=== PATIENT | female | born 1985 | race Caucasian/White ===

== ENCOUNTER 2017-09-17 16:59 | Emergency (ER) | payer OTHER ==
--- NOTE | 2017-09-17 18:03 | PDOC ---
Rapid Medical Evaluation Time Seen by Provider: 09/17/17 18:00 Medical Evaluation: Allergies Allergy/AdvReac Type Severity Reaction Status Date / Time No Known Allergies Allergy Verified 11/07/11 15:38 09/17/17 18:00 I have performed a brief in-person evaluation of this patient. The patient presents with a chief complaint of: , ~6 wks preg, 08/23 LMP, " a little vag bleeding" Pertinent physical exam findings: abdominal pain I have ordered the following: labs, US The patient will proceed to the ED for further evaluation. Discharge Disposition - Diagnosis Vaginal bleeding during - Referrals - Patient Instructions - Post Discharge Activity
[2017-09-17 18:06] VITALS: BP 97/64; PULSE 77; TEMP 98.4; BMI 23.8
[2017-09-17 20:28] LABS: BASO % 0.4 % (0-2.0); EOS % 0.4 % (0-4.5); HEMATOCRIT 42.5 % (32.4-45.2); HEMOGLOBIN 14.5 GM/dL (10.7-15.3); LYMPH % 16.2 % (8-40); MCH 30.6 pg (25.7-33.7); MCHC 34.1 g/dl (32.0-36.0); MEAN PLT VOLUME 9.1 fl (7.5-11.1); MONO % 6.9 % (3.8-10.2); NEUT % 76.1 % (42.8-82.8); PLATELET COUNT 187 K/MM3 (134-434); RBC 4.73 M/mm3 (3.60-5.2); URINE APPEARANCE SLCLOUDY; URINE BILIRUBIN NEGATIVE (NEGATIVE); URINE BLOOD 2+ (NEGATIVE); URINE COLOR YELLOW; URINE GLUCOSE (UA) NEGATIVE (NEGATIVE); URINE KETONE 2+ (NEGATIVE); URINE NITRITE NEGATIVE (NEGATIVE); WHITE BLOOD COUNT 9.3 K/mm3 (4.0-10.0)
[2017-09-17 20:31] LABS: URINE LEUK ESTERASE 3+ (NEGATIVE); URINE PROTEIN 1+ (NEGATIVE)
[2017-09-17 20:33] LABS: EPI CELLS FEW /HPF (FEW); URINE MUCUS RARE
[2017-09-17 21:24] LABS: ANION GAP 12 (8-16); BLOOD UREA NITROGEN 14 mg/dL (7-18); CALCIUM 8.9 mg/dL (8.5-10.1); CHLORIDE 98 mmol/L (98-107); CO2 25 mmol/L (21-32); CREATININE 0.6 mg/dL (0.55-1.02); GLUCOSE,RANDOM 77 mg/dL (74-106); POTASSIUM 3.6 mmol/L (3.5-5.1); SGOT/AST 20 U/L (15-37); SGPT/ALT 33 U/L (12-78); SODIUM 135 mmol/L (136-145)
[2017-09-17 21:41] LABS: ALK PHOS 79 U/L (45-117); BILIRUBIN,TOTAL 0.7 mg/dL (0.2-1.0); TOT PROT 7.8 g/dl (6.4-8.2)
--- NOTE | 2017-09-17 22:15 | PDOC ---
*Physical Exam - Vital Signs Last Vital Signs Temp Pulse Resp BP Pulse Ox 98.4 F 77 18 97/64 100 09/17/17 18:02 09/17/17 18:02 09/17/17 18:02 09/17/17 18:02 09/17/17 18:02 ED Treatment Course - LABORATORY CBC & Chemistry Diagram: 09/17/17 20:20 09/17/17 20:20 - ADDITIONAL ORDERS Additional order review: Laboratory Results 09/17/17 09/17/17 09/17/17 20:20 20:20 20:20 Sodium 135 L Potassium 3.6 Chloride 98 Carbon Dioxide 25 Anion Gap 12 BUN 14 Creatinine 0.6 Creat Clearance w eGFR > 60 Random Glucose 77 Calcium 8.9 Total Bilirubin 0.7 AST 20 ALT 33 Alkaline Phosphatase 79 Total Protein 7.8 Albumin 4.0 Beta HCG, Quant 067781.5 Urine Color Yellow Urine Appearance Slcloudy Urine pH 5.0 Ur Specific [place] 1.028 Urine Protein 1+ H Urine Glucose (UA) Negative Urine Ketones 2+ H Urine Blood 2+ H Urine Nitrite Negative Urine Bilirubin Negative Urine Urobilinogen 2.0 H Ur Leukocyte Esterase 3+ H Urine WBC (Auto) 41 Urine RBC (Auto) 2 Ur Epithelial Cells Few Urine Mucus Rare Blood Type O POSITIVE Antibody Screen Negative 09/17/17 20:20 RBC 4.73 MCV 90.0 MCHC 34.1 RDW 13.0 MPV 9.1 Neutrophils % 76.1 Lymphocytes % 16.2 D Monocytes % 6.9 Eosinophils % 0.4 D Basophils % 0.4 Medical Decision Making - Medical Decision Making 09/17/17 22:15 agree with care from CORINNE Bullard *DC/Admit/Observation/Transfer Diagnosis at time of Disposition: Vaginal bleeding during - Referrals - Patient Instructions - Post Discharge Activity
--- NOTE | 2017-09-17 22:22 | PDOC ---
History of Present Illness - General Chief Complaint: Vaginal Bleeding Stated Complaint: VAGINAL BLEEDING/7 WKS Time Seen by Provider: 09/17/17 18:00 History Source: Patient - History of Present Illness Initial Comments: 09/17/17 22:16 32-year-old female complaining of vaginal bleeding/pelvic pain since this afternoon with small spotting. Patient positive urine at home and has an appointment to see [employer] in 2 weeks. Denies urinary symptoms Past History - Past Medical History Allergies/Adverse Reactions: Allergies Allergy/AdvReac Type Severity Reaction Status Date / Time No Known Allergies Allergy Verified 09/17/17 18:01 Home Medications: Ambulatory Orders Pnv Comb.no58/Iron Bisgly/FA [ Capsule] 1 cap PO DAILY 11/07/11 Asthma: No Cancer: No Cardiac Disorders: No COPD: No Diabetes: No HTN: No Seizures: No Thyroid Disease: No - Suicide/Smoking/Psychosocial Hx Smoking History: Never smoked Have you smoked in the past 12 months: No Information on smoking cessation initiated: No Hx Alcohol Use: No Drug/Substance Use Hx: No Substance Use Type: None Hx Substance Use Treatment: No *Physical Exam - Vital Signs Last Vital Signs Temp Pulse Resp BP Pulse Ox 98.4 F 77 18 97/64 100 09/17/17 18:02 09/17/17 18:02 09/17/17 18:02 09/17/17 18:02 09/17/17 18:02 - Physical Exam General Appearance: Yes: Appropriately Dressed Respiratory/Chest: positive: Lungs Clear, Normal Breath Sounds Female Pelvic Exam: positive: normal external exam, cervical os closed, normal adnexa, other (white/ brown vaginal discarge). negative: [facility] ED Treatment Course - LABORATORY CBC & Chemistry Diagram: 09/17/17 20:20 09/17/17 20:20 - ADDITIONAL ORDERS Additional order review: Laboratory Results 09/17/17 09/17/17 09/17/17 20:20 20:20 20:20 Sodium 135 L Potassium 3.6 Chloride 98 Carbon Dioxide 25 Anion Gap 12 BUN 14 Creatinine 0.6 Creat Clearance w eGFR > 60 Random Glucose 77 Calcium 8.9 Total Bilirubin 0.7 AST 20 ALT 33 Alkaline Phosphatase 79 Total Protein 7.8 Albumin 4.0 Beta HCG, Quant 271420.5 Urine Color Yellow Urine Appearance Slcloudy Urine pH 5.0 Ur Specific [place] 1.028 Urine Protein 1+ H Urine Glucose (UA) Negative Urine Ketones 2+ H Urine Blood 2+ H Urine Nitrite Negative Urine Bilirubin Negative Urine Urobilinogen 2.0 H Ur Leukocyte Esterase 3+ H Urine WBC (Auto) 41 Urine RBC (Auto) 2 Ur Epithelial Cells Few Urine Mucus Rare Blood Type O POSITIVE Antibody Screen Negative 09/17/17 20:20 RBC 4.73 MCV 90.0 MCHC 34.1 RDW 13.0 MPV 9.1 Neutrophils % 76.1 Lymphocytes % 16.2 D Monocytes % 6.9 Eosinophils % 0.4 D Basophils % 0.4 *DC/Admit/Observation/Transfer Diagnosis at time of Disposition: Vaginal bleeding during , Threatened in early , UTI (urinary tract infection) - Discharge Dispostion Disposition: HOME - Referrals - Patient Instructions Printed Discharge Instructions: DI for Vaginal Bleeding During , Threatened Additional Instructions: Drink plenty of fluids. Take Macrobid as prescribed. 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 Return to the emergency room if you are soaking through 2 pads in an hour, severe abdominal pain, fever or with worsening symptoms. - Post Discharge Activity
[2017-09-17] MEDS ORDERED: NITROFURANTOIN MACROCRYSTAL 50 MG CAPSULE (FP) PO SCH (22:30)
[2017-09-17] MEDS ORDERED: NITROFURANTOIN MACROCRYSTAL 50 MG CAPSULE (FP) ONE (23:00)
== END 2017-09-17 22:33 | disposition home or self-care (01) ==
LOC: JER 16:59
DX: O26.891 Other specified pregnancy related conditions, first trimester (principal); O20.0 Threatened abortion; O23.31 Infections of other parts of urinary tract in pregnancy, first trimester; Z3A.01 Less than 8 weeks gestation of pregnancy
CPT/HCPCS: 36415; 76817-TC; 80053; 81003; 81015; 84702; 85025; 86850; 86900; 86901; 87086; 99282-25

== ENCOUNTER 2018-04-17 07:35 | Inpatient (IN) | payer OTHER ==
[2018-04-17] MEDS ORDERED: OXYTOCIN 10 UNITS/ML VIAL IM STA (07:45)
[2018-04-17] MEDS ORDERED: METHYLERGONOVINE MALEATE 0.2 MG/1 ML AMP IM STA (07:45)
[2018-04-17 08:18] VITALS: BMI 28.3
[2018-04-17] MEDS ORDERED: BENZOCAINE 28 GM HEMORRHOIDAL OINTMENT TP PRN (08:31)
[2018-04-17] MEDS ORDERED: BISACODYL 10 MG SUPP.RECT RC PRN (08:31)
[2018-04-17] MEDS ORDERED: WITCH HAZEL 50% (TUCKS) 40 PAD/JAR PAD TP PRN (08:31)
[2018-04-17] MEDS ORDERED: METHYLERGONOVINE MALEATE 0.2 MG/1 ML AMP IM PRN (08:31)
[2018-04-17] MEDS ORDERED: BENZOCAINE 20% 57 GM BOTTLE TP PRN (08:31)
--- NOTE | 2018-04-17 08:36 | HP ---
Past Medical History - Primary Care Physician PCP:: Silver Fisher - Admission Chief Complaint: 38 weeks, labor History of Present Illness: 33 yof 38.2 weeks,in labor, cx full 100 vx 3+ station, srom at arrival ,clear fluid, fhr 130 .strong contraction History Source: Patient Limitations to Obtaining History: Language Barrier - Past Medical History ...: 3 ...Para: 2 ...Term: 2 ...LMP: 07/23/17 ... Weeks Gestation by Dates: 38.2 ...EDC by Dates: 04/29/18 ...EDC by Sono: 05/05/18 - Past Surgical History Hx Myomectomy: No Hx Transabdominal Cerclage: No - Smoking History Smoking history: Never smoked Have you smoked in the past 12 months: No - Alcohol/Substance Use Hx Alcohol Use: No - Social History Usual Living Arrangement: Yes: With Spouse Home Medications - Allergies Allergies/Adverse Reactions: Allergies Allergy/AdvReac Type Severity Reaction Status Date / Time No Known Allergies Allergy Verified 09/17/17 18:01 - Home Medications Home Medications: Ambulatory Orders Nitrofurantoin Monohyd/M-Cryst [Macrobid -] 100 mg PO BID #20 capsule 09/17/17 Review of Systems - Review of Systems Constitutional: reports: No Symptoms Eyes: reports: No Symptoms HENT: reports: No Symptoms Neck: reports: No Symptoms Cardiovascular: reports: No Symptoms Respiratory: reports: No Symptoms Gastrointestinal: reports: No Symptoms Genitourinary: reports: No Symptoms Breasts: reports: No Symptoms Reported Musculoskeletal: reports: No Symptoms Integumentary: reports: No Symptoms Neurological: reports: No Symptoms Endocrine: reports: No Symptoms Hematology/Lymphatic: reports: No Symptoms Psychiatric: reports: No Symptoms Physical Exam - Maternity Vital Signs: Vital Signs Temperature 98.2 F 04/17/18 08:11 Pulse Rate 84 04/17/18 08:11 Respiratory Rate 18 04/17/18 08:11 Blood Pressure 138/78 04/17/18 08:11 O2 Sat by Pulse Oximetry (%) Constitutional: Yes: Well Nourished, No Distress, Calm Eyes: Yes: WNL, Conjunctiva Clear, EOM Intact HENT: Yes: WNL, Atraumatic, Normocephalic Neck: Yes: WNL, Supple, Trachea Midline Cardiovascular: Yes: WNL, Regular Rate and Rhythm Breast(s): Yes: WNL - Abdominal Exam/OB Fundal Height: 38 Number of Fetuses: Single Presentation: Vertex Contractions: Yes Regularity: Regular Intensity: Strong Monitor Mode: External Heart Rate Location: [facility] Category: I Decelerations: None - Vaginal Exam/OB Vaginal Bleediing: Bloody Show Speculum Exam: No Dilatation (cm): full Effacement (%): 100 Amniotic Membrane Status: Ruptured Nitrazine Test: Positive Amniotic Fluid: Yes: Clear Presentation: Vertex/Position Station: +3 - Physical Exam Edema: No Deep Tendon Reflex Grade: Normal +2 Hemorrhage Risk Assessment - Risk Factors Medium Risk Factors: Yes: None High Risk Factors: Yes: None Risk Score: 1 Risk Level: Medium Risk Problem List - Problems (1) with 38 completed weeks gestation Code(s): Z3A.38 - 38 WEEKS GESTATION OF (2) Labor established Code(s): QBI8390 - Assessment/Plan admit for vaginal delivery
[2018-04-17 09:03] LABS: BASO % 0.2 % (0-2.0); HEMATOCRIT 39.9 % (32.4-45.2); HEMOGLOBIN 12.8 GM/dL (10.7-15.3); LYMPH % 6.4 % (8-40); MCH 29.4 pg (25.7-33.7); MCHC 32.1 g/dl (32.0-36.0); MEAN CELL VOLUME 91.6 fl (80-96); MEAN PLT VOLUME 9.5 fl (7.5-11.1); MONO % 4.3 % (3.8-10.2); NEUT % 89.1 % (42.8-82.8); PLATELET COUNT 142 K/MM3 (134-434); RBC 4.35 M/mm3 (3.60-5.2); RDW 13.5 % (11.6-15.6); WHITE BLOOD COUNT 13.2 K/mm3 (4.0-10.0)
[2018-04-17 09:15] LABS: BLOOD UREA NITROGEN 10 mg/dL (7-18); CALCIUM 8.9 mg/dL (8.5-10.1); CO2 21 mmol/L (21-32); GLUCOSE,RANDOM 105 mg/dL (74-106)
[2018-04-17 09:19] LABS: INR 0.94 (0.83-1.09); PROTHROMBIN TIME (PATIENT) 10.6 SEC (9.7-13.0)
[2018-04-17 09:21] LABS: ACTIVATED PTT 29.1 SECONDS (25.2-36.5)
[2018-04-17 10:19] LABS: ANION GAP 14 MMOL/L (8-16); CHLORIDE 103 mmol/L (98-107); CREATININE 0.6 mg/dL (0.55-1.3); POTASSIUM 3.7 mmol/L (3.5-5.1); SODIUM 138 mmol/L (136-145)
[2018-04-17] MEDS: IBUPROFEN 600 MG TABLET (FP) PO PRN (13:47)
[2018-04-17] MEDS: PRENATAL VITAMINS W/ FOLIC ACID TABLET (FP) PO SCH (13:47)
[2018-04-17] MEDS: ACETAMINOPHEN 325 MG TABLET (FP) PO PRN (13:48)
[2018-04-17] MEDS: FERROUS SO4 325 MG TABLET (FP) PO SCH (21:45)
[2018-04-18] MEDS: FERROUS SO4 325 MG TABLET (FP) PO SCH ×2 (07:24→19:01)
[2018-04-18 07:32] LABS: BASO % 0.2 % (0-2.0); EOS % 0.2 % (0-4.5); HEMATOCRIT 35.2 % (32.4-45.2); HEMOGLOBIN 11.6 GM/dL (10.7-15.3); LYMPH % 12.7 % (8-40); MCHC 33.1 g/dl (32.0-36.0); MEAN CELL VOLUME 90.9 fl (80-96); MONO % 6.3 % (3.8-10.2); NEUT % 80.6 % (42.8-82.8); PLATELET COUNT 146 K/MM3 (134-434); RBC 3.87 M/mm3 (3.60-5.2); RDW 13.7 % (11.6-15.6); WHITE BLOOD COUNT 10.9 K/mm3 (4.0-10.0)
[2018-04-18] MEDS: PRENATAL VITAMINS W/ FOLIC ACID TABLET (FP) PO SCH (09:39)
[2018-04-18] MEDS: IBUPROFEN 600 MG TABLET (FP) PO PRN (09:42)
[2018-04-18] MEDS: ACETAMINOPHEN 325 MG TABLET (FP) PO PRN (09:42)
[2018-04-18] MEDS ORDERED: DIPHTH,PERTUSS(ACELL),TET 0.5 ML DISP.SYRIN IM ONE (10:00)
--- NOTE | 2018-04-18 10:20 | PN ---
Post Progress Note Post Day: 1 Type of Delivery: Vital Signs: Vital Signs Temperature 98 F 04/18/18 06:00 Pulse Rate 59 L 04/18/18 06:00 Respiratory Rate 18 04/18/18 06:00 Blood Pressure 100/55 04/18/18 06:00 O2 Sat by Pulse Oximetry (%) Breast Exam: Yes: Soft Uterus: Yes: Fundus Firm Abdomen/GI: Yes: Abdomen soft Lochia: Yes: Rubra Lochia, amount: Small Extremities: Yes: Calves non-tender Perineum: Yes: Intact Activity: Ambulating - Labs Labs: CBC WBC 10.9 K/mm3 (4.0-10.0) H 04/18/18 07:10 RBC 3.87 M/mm3 (3.60-5.2) 04/18/18 07:10 Hgb 11.6 GM/dL (10.7-15.3) 04/18/18 07:10 Hct 35.2 % (32.4-45.2) 04/18/18 07:10 MCV 90.9 fl (80-96) 04/18/18 07:10 MCH 30.0 pg (25.7-33.7) 04/18/18 07:10 MCHC 33.1 g/dl (32.0-36.0) 04/18/18 07:10 RDW 13.7 % (11.6-15.6) 04/18/18 07:10 Plt Count 146 K/MM3 (134-434) 04/18/18 07:10 MPV 9.0 fl (7.5-11.1) 04/18/18 07:10 Absolute Neuts (auto) 8.8 K/mm3 (1.5-8.0) H 04/18/18 07:10 Neutrophils % 80.6 % (42.8-82.8) 04/18/18 07:10 Lymphocytes % 12.7 % (8-40) D 04/18/18 07:10 Monocytes % 6.3 % (3.8-10.2) 04/18/18 07:10 Eosinophils % 0.2 % (0-4.5) D 04/18/18 07:10 Basophils % 0.2 % (0-2.0) 04/18/18 07:10 Nucleated RBC % 0 % (0-0) 04/18/18 07:10 Assessment/Plan reg diet oob contine care
[2018-04-18] MEDS ORDERED: SENNOSIDES/DOCUSATE COMBO (SENNA PLUS) TABLET (UD) PO PRN (22:00)
[2018-04-19] MEDS: IBUPROFEN 600 MG TABLET (FP) PO PRN ×2 (01:46→08:48)
[2018-04-19] MEDS: ACETAMINOPHEN 325 MG TABLET (FP) PO PRN ×2 (01:46→08:50)
[2018-04-19] MEDS: FERROUS SO4 325 MG TABLET (FP) PO SCH (08:48)
[2018-04-19] MEDS: PRENATAL VITAMINS W/ FOLIC ACID TABLET (FP) PO SCH (10:00)
[2018-04-19 12:28] VITALS: BP 112/64; PULSE 74; TEMP 98
== END 2018-04-19 12:00 | disposition home or self-care (01) | DRG 560 ==
LOC: JLDR 07:35 → J3W 10:00
PROVIDERS: ADMIT Obstetrics & Gynecology; ATTEND Obstetrics & Gynecology
PROC: 10E0XZZ Delivery of Products of Conception, External Approach (ICD-10-PCS; principal; 2018-04-17)
DX: O80 Encounter for full-term uncomplicated delivery (principal); Z3A.38 38 weeks gestation of pregnancy; Z37.0 Single live birth
CPT/HCPCS: 36415; 59409; 80048; 85025; 85610; 85730; 86593; 86850; 86900; 86901; 90715

== ENCOUNTER 2022-12-15 13:40 | Inpatient (IN) | payer OTHER ==
[2022-12-15] MEDS ORDERED: SODIUM CHLORIDE 100 ML IVPB ONE (14:26)
[2022-12-15] MEDS ORDERED: AMPICILLIN SODIUM 2 GM VIAL ONE (14:26)
[2022-12-15] MEDS ORDERED: AMPICILLIN - 2 GM in SODIUM CHLORIDE 100 ML IVPB ONE (14:43)
[2022-12-15] MEDS: ELECTROLYTE-148 SOLN 1,000 ML IV SCH (14:45)
[2022-12-15 15:02] VITALS: BMI 27.8
[2022-12-15 15:02] LABS: BASO % 0.3 % (0-2.0); EOS % 0.1 % (0-4.5); HEMATOCRIT 34.8 % (32.4-45.2); HEMOGLOBIN 11.6 GM/dL (10.7-15.3); LYMPH % 10.6 % (8-40); MCHC 33.3 g/dl (32.0-36.0); MEAN CELL VOLUME 86.9 fl (80-96); MEAN PLT VOLUME 10.8 fl (7.5-11.1); MONO % 4.7 % (3.8-10.2); NEUT % 84.3 % (42.8-82.8); PLATELET COUNT 148 10^3/uL (134-434); RBC 4.01 M/mm3 (3.60-5.2); WHITE BLOOD COUNT 10.5 K/mm3 (4.0-10.0)
[2022-12-15] MEDS ORDERED: OXYTOCIN 20 UNITS in 0.9% NS 20 UNIT/1,000 ML INFUS.BAG IV ONE ×2 (15:09→16:36)
[2022-12-15] MEDS: OXYTOCIN 20 UNITS in 0.9% NS 20 UNIT/1,000 ML INFUS.BAG IV SCH ×2 (15:29→16:38)
[2022-12-15] MEDS ORDERED: WITCH HAZEL 50% (TUCKS) 40 PAD/JAR PAD TP PRN (15:35)
[2022-12-15] MEDS ORDERED: METHYLERGONOVINE MALEATE 0.2 MG/1 ML AMP IM PRN (15:35)
[2022-12-15] MEDS ORDERED: BISACODYL 10 MG SUPP.RECT RC PRN (15:35)
[2022-12-15] MEDS ORDERED: BENZOCAINE 28 GM HEMORRHOIDAL OINTMENT TP PRN (15:35)
[2022-12-15] MEDS ORDERED: IBUPROFEN 600 MG TABLET (FP) PO PRN (15:35)
[2022-12-15] MEDS ORDERED: BENZOCAINE 20% 57 GM BOTTLE TP PRN (15:35)
[2022-12-15] MEDS ORDERED: ACETAMINOPHEN 325 MG TABLET (FP) PO PRN (15:35)
[2022-12-15] MEDS ORDERED: oxyCODONE HCL 5 MG TABLET PO PRN (15:35)
[2022-12-15 15:36] LABS: POTASSIUM 4.2 mmol/L (3.5-5.1)
[2022-12-15 15:38] LABS: CALCIUM 8.5 mg/dL (8.5-10.1)
[2022-12-15 15:39] LABS: ALBUMIN 2.6 g/dl (3.4-5.0); BLOOD UREA NITROGEN 15.8 mg/dL (7-18)
[2022-12-15 15:42] LABS: CREATININE 0.6 mg/dL (0.55-1.3)
[2022-12-15 15:43] LABS: TOT PROT 6.5 g/dl (6.4-8.2)
[2022-12-15 15:44] LABS: BILIRUBIN,TOTAL 0.3 mg/dL (0.2-1)
[2022-12-15 15:52] LABS: CORD HCO3 24.3 mmHg (20-29); CORD PCO2 49.1 mmHg (30-78); CORD pH 7.312 (7.14-7.44)
[2022-12-15 15:57] LABS: CORD HCO3 22.6 mmHg (20-29); CORD PCO2 36.1 mmHg (30-78); CORD pH 7.415 (7.14-7.44)
[2022-12-15 15:57] LABS: SYPHILIS W/ RPR CONF NON-REACTIVE (NONREACTIVE)
[2022-12-15] MEDS ORDERED: ACETAMINOPHEN 325 MG TABLET (FP) ONE (16:18)
[2022-12-15 16:26] LABS: HIV INTERPRETATION NEGATIVE (NEGATIVE)
[2022-12-16 03:24] VITALS: RESP 18
[2022-12-16 08:50] LABS: BASO % 0.2 % (0-2.0); EOS % 0.1 % (0-4.5); HEMATOCRIT 30.9 % (32.4-45.2); HEMOGLOBIN 10.5 GM/dL (10.7-15.3); LYMPH % 13.9 % (8-40); MCH 29.4 pg (25.7-33.7); MCHC 33.9 g/dl (32.0-36.0); MEAN CELL VOLUME 86.8 fl (80-96); MONO % 5.1 % (3.8-10.2); NEUT % 80.7 % (42.8-82.8); PLATELET COUNT 110 10^3/uL (134-434); RBC 3.56 M/mm3 (3.60-5.2); RDW 15.2 % (11.6-15.6)
[2022-12-16] MEDS ORDERED: DIPHTH,PERTUSS(ACELL),TET 0.5 ML DISP.SYRIN IM ONE (10:00)
[2022-12-16] MEDS ORDERED: FLU VACC QS2022-23(6MOS UP)/PF 60 MCG/0.5 ML SYRINGE IM ONE (10:00)
[2022-12-16] MEDS: ELECTROLYTE-148 SOLN 1,000 ML IV SCH (21:40)
[2022-12-16] MEDS ORDERED: SENNOSIDES/DOCUSATE COMBO (SENNA PLUS) TABLET (UD) PO PRN (22:00)
[2022-12-17 08:50] VITALS: BP 90/55; PULSE 73; TEMP 98.7
== END 2022-12-17 13:15 | disposition home or self-care (01) | DRG 560 ==
LOC: JDEL 13:40 → JLDR 14:15 → J3W 17:15
PROVIDERS: ADMIT Obstetrics & Gynecology; ATTEND Obstetrics & Gynecology
PROC: 10E0XZZ Delivery of Products of Conception, External Approach (ICD-10-PCS; principal; 2022-12-15)
DX: O80 Encounter for full-term uncomplicated delivery (principal); Z3A.38 38 weeks gestation of pregnancy; Z37.0 Single live birth
CPT/HCPCS: 36415; 36600; 80053; 82803; 85025; 85730; 86780; 86850; 86900; 86901; 87340; 87389; 90715; C9803-CS; G0008; Q2036; U0003; U0005

== ENCOUNTER 2023-02-13 05:22 | Day surgery (SDC) | payer OTHER ==
[2023-02-12 09:48] VITALS: BMI 27.3
[2023-02-13] MEDS ORDERED: BUPIVACAINE HCL/PF 0.5% (5MG/ML) 10 ML VIAL ONE (12:27)
[2023-02-13] MEDS ORDERED: PROPOFOL 20 ML ONE (12:30)
[2023-02-13] MEDS ORDERED: KETOROLAC TROMETHAMINE 30 MG/1 ML VIAL ONE (12:31)
[2023-02-13] MEDS ORDERED: ROCURONIUM BROMIDE 50 MG/5 ML SYRINGE ONE (12:31)
[2023-02-13] MEDS ORDERED: MIDAZOLAM HCL 2 MG/2 ML SINGLE DOSE VIAL ONE (12:31)
[2023-02-13] MEDS ORDERED: ceFAZolin SODIUM 1 GM VIAL ONE (12:31)
[2023-02-13] MEDS ORDERED: ONDANSETRON 4 MG/2 ML VIAL ONE (12:31)
[2023-02-13] MEDS ORDERED: LIDOCAINE HCL/PF 2% SDV 5ML VIAL ONE (12:31)
[2023-02-13] MEDS ORDERED: DEXAMETHASONE SOD PHOSPHATE 4 MG/1 ML VIAL ONE (12:31)
[2023-02-13] MEDS ORDERED: SEVOFLURANE 250 ML BTL ONE (12:32)
[2023-02-13] MEDS ORDERED: PROMETHAZINE HCL 25 MG/1 ML VIAL IVPB PRN (12:53)
[2023-02-13] MEDS ORDERED: oxyCODONE HCL 5 MG TABLET PO PRN ×3 (12:53→13:54)
[2023-02-13] MEDS ORDERED: ONDANSETRON 4 MG/2 ML VIAL IVPUSH PRN ×2 (12:53→13:54)
[2023-02-13] MEDS ORDERED: ACETAMINOPHEN 1000 MG/100 ML BAG IVPB PRN (12:54)
[2023-02-13] MEDS ORDERED: LACTATED RINGERS SOLUTION 1,000 ML IV SCH (13:00)
[2023-02-13] MEDS ORDERED: NEOSTIGMINE METHYLSULFATE 0.5 MG/1 ML - 10 ML MDV ONE (13:29)
[2023-02-13] MEDS ORDERED: GLYCOPYRROLATE 0.2 MG/1 ML VIAL ONE ×2 (13:29→13:39)
[2023-02-13] MEDS ORDERED: IBUPROFEN 800 MG/8 ML IJ IVPB PRN (13:54)
[2023-02-13] MEDS ORDERED: IBUPROFEN 600 MG TABLET (FP) PO PRN (13:54)
[2023-02-13] MEDS ORDERED: ELECTROLYTE-148 SOLN 1,000 ML IV SCH (14:00)
[2023-02-13] MEDS ORDERED: ACETAMINOPHEN INJECTION 100 ML IVPB ONE (14:14)
[2023-02-13] MEDS ORDERED: ACETAMINOPHEN 1000 MG/100 ML BAG IVPB ONE (14:20)
[2023-02-13 16:39] VITALS: RESP 16
[2023-02-13] MEDS ORDERED: IBUPROFEN 600 MG TABLET (FP) PO ONE (17:01)
[2023-02-13 17:45] VITALS: BP 106/61; PULSE 62; TEMP 98
== END 2023-02-13 17:40 | disposition home or self-care (01) ==
LOC: JASU-SURG 05:22
PROVIDERS: ATTEND Obstetrics & Gynecology
PROC: 0UB74ZZ Excision of Bilateral Fallopian Tubes, Percutaneous Endoscopic Approach (ICD-10-PCS; principal; 2023-02-13 14:00)
DX: Z30.2 Encounter for sterilization (principal)
CPT/HCPCS: 88302-TC; 94760